=== PATIENT | male | born 1935 | race Caucasian/White ===

== ENCOUNTER 2017-02-14 05:44 | Day surgery (SDC) | payer MEDICARE, BC ==
[2017-02-13 11:44] VITALS: BMI 31.4
[2017-02-14] MEDS ORDERED: Ketorolac Tromethamine 30 MG/ML VIAL ONE (06:22)
[2017-02-14] MEDS ORDERED: CEFAZOLIN/Water 2 GM/20 ML SYRINGE ONE (06:22)
[2017-02-14] MEDS ORDERED: Fentanyl 100 MCG/2 ML VIAL ONE ×2 (06:38→10:33)
[2017-02-14 06:55] LABS: #Eosinphils 0.2 thou/uL (0.0-0.7); #Lymphocytes 1.9 thou/uL (1.20-3.40); #Monocytes 0.6 thou/uL (0.11-0.59); #Neutrophils 2.4 thou/uL (1.40-6.50); %Basophils 0.2 % (0.0-1.0); %Eosinophils 3.6 % (0.0-10.0); %Lymphocytes 37.4 % (21.0-51.0); %Monocytes 11.1 % (0.0-10.0); Hematocrit 42.2 % (42.0-52.0); Mean Platelet Volume 8.8 fL (7.4-10.4); Red Blood Cell (RBC) Count 4.28 mill/uL (4.70-6.10)
[2017-02-14 07:11] LABS: Anion Gap 9 mmol/L (10-20); BUN (Urea Nitrogen) 14 mg/dL (8.4-25.7); Calc. Creatinine Clearance 91 mL/min (70-130); Carbon Dioxide 28 mmol/L (23-31); Chloride 106 mmol/L (98-107); Estimated GFR-MDRD 81
[2017-02-14] MEDS ORDERED: Bupivacaine/Epinephrine 0.25% 30 ML VIAL ONE (07:17)
--- NOTE | 2017-02-14 07:42 | RAD ---
PA AND LATERAL CHEST: Indication: Dyspnea. Comparison: 11-30-15 FINDINGS: Low lung volumes accentuate the cardiac silhouette and pulmonary vasculature. No definite acute airsp bal consolidation or pleural effusions are noted. 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 IMPRESSION: No definite acute cardiopulmonary abnormalities. Low lung volumes. POS: [facility]
[2017-02-14] MEDS ORDERED: Morphine 4 MG/ML VIAL ONE (10:32)
[2017-02-14] MEDS ORDERED: Promethazine HCl 25 MG/ML VIAL IM/IV PRN (11:00)
[2017-02-14] MEDS ORDERED: Ondansetron HCl/PF 4 MG/2 ML Vial IVP PRN (11:00)
[2017-02-14] MEDS ORDERED: HYDROcodone/Acetaminophen 5/325 mg Tablet ONE (12:20)
[2017-02-14] MEDS ORDERED: Propofol 200 MG/20 ML VIAL ONE (16:18)
[2017-02-14] MEDS ORDERED: Glycopyrrolate 0.2 MG/ML 5 ML SYRINGE ONE (16:18)
[2017-02-14] MEDS ORDERED: Lidocaine 1% PF 5 ML VIAL ONE (16:18)
[2017-02-14] MEDS ORDERED: Ondansetron HCl/PF 4 MG/2 ML Vial ONE (16:18)
[2017-02-14] MEDS ORDERED: ePHEDrine/0.9% NaCl/PF SYRINGE 50 mg/10 ml ONE (16:18)
--- NOTE | 2017-02-14 19:59 | OP ---
DATE OF PROCEDURE: 02/14/2017 PREOPERATIVE DIAGNOSIS: Bilateral inguinal hernia. POSTOPERATIVE DIAGNOSIS: Bilateral inguinal hernia, indirect. OPERATION PERFORMED: Open repair of bilateral indirect inguinal hernias with extra-large mesh patch and plug. SURGEON: Lalit Pedro M.D. ANESTHESIA: General endotracheal. INDICATIONS: The patient is a 81-year-old white male. He presents with a large visible and palpable symptomatic bilateral inguinal hernias. He was taken to the operating room at this time for repair. DESCRIPTION OF OPERATION: Informed consent was obtained. The patient was taken to the operating socorro m where general endotracheal anesthesia obtained with the patient in supine position. The abdomen an d groins were prepped with ChloraPrep and draped in sterile fashion. Local anesthetic was infiltrate d using 0.25% Marcaine with epinephrine. Oblique right inguinal incision was created. Dissection wa s carried through skin and subcutaneous tissue down to the fascia, which was opened parallel to the f ibers so as to open the external ring. There was an obvious bulging mass coming through the external ring. The cord was dissected circumferentially and controlled with a [place] drain. There was a ve ry large cord. I with difficulty was able to dissect a large herniated structure off of the cord. I could not really define a hernia sac and this seemed to primarily be herniated preperitoneal fat con sistent with a huge cord lipoma. I was able to mobilize this from the lateral aspects of the interna l ring and mobilized off the cord structures. This appeared to come from several different pieces of herniated fatty tissue. I was able to reduce all the contents internally. The entire lateral aspec t of the lower abdominal/inguinal wall seemed very weak. An extra-large mesh plug was obtained and s ecured to the apex of the hernia contents were reduced into the space. This was fixed in place with several interrupted sutures of 2-0 Vicryl. I then placed 2 imbricating sutures to attempt to close t he space around and in continuity with the mesh. A mesh patch was then obtained, trimmed to appropri ate size, placed within the floor of the inguinal canal, and secured in place using several interrupt ed sutures of 2-0 Vicryl including additional lateral sutures to try to strengthen the lateral aspect of the wall. Additional local anesthetic was infiltrated. The fascia was closed with running sutur e of 3-0 Vicryl. The remainder of the wound was closed in layers with 3-0 and 4-0 Monocryl and [place] villeda was placed externally. Attention was turned to the left side. A mirror image incision and dissection was carried out. He h ad the exact same findings with a large lateral herniated fatty mass. The repair was affected in the same fashion using the same mesh in the same sutures. The wound was closed in the same fashion and Dermabond was placed externally. There were no complications. The patient tolerated the procedure w ell and was taken to recovery room in stable condition.
--- NOTE | 2017-03-04 13:20 | EKG ---
Test Reason : PREOP Blood Pressure : / mmHG Vent. Rate : 058 BPM Atrial Rate : 058 BPM P-R Int : 162 ms QRS Dur : 092 ms QT Int : 444 ms P-R-T Axes : 053 001 020 degrees QTc Int : 435 ms Sinus bradycardia Possible Inferior infarct , age undetermined Abnormal ECG No previous ECGs available Confirmed by SOLO GUTIERREZ MD ([id number]) on 03/04/2017 1:19:43 PM Referred By: MARISSA Confirmed By:SOLO GUTIERREZ MD
== END 2017-02-14 13:05 | disposition home or self-care (01) ==
LOC: SDC 05:44
PROVIDERS: ATTEND Specialist
PROC: 0YUA0JZ Supplement Bilateral Inguinal Region with Synthetic Substitute, Open Approach (ICD-10-PCS; principal; 2017-02-14)
DX: K40.00 Bilateral inguinal hernia, with obstruction, without gangrene, not specified as recurrent (principal); I10 Essential (primary) hypertension; E78.00 Pure hypercholesterolemia, unspecified; J45.909 Unspecified asthma, uncomplicated; G47.33 Obstructive sleep apnea (adult) (pediatric); G43.909 Migraine, unspecified, not intractable, without status migrainosus; K21.9 Gastro-esophageal reflux disease without esophagitis; M19.90 Unspecified osteoarthritis, unspecified site; Z98.42 Cataract extraction status, left eye; Z98.41 Cataract extraction status, right eye; Z96.1 Presence of intraocular lens; Z87.891 Personal history of nicotine dependence; Z92.3 Personal history of irradiation; Z85.46 Personal history of malignant neoplasm of prostate; Z87.442 Personal history of urinary calculi; Z79.899 Other long term (current) drug therapy; Z90.49 Acquired absence of other specified parts of digestive tract; Z98.890 Other specified postprocedural states; Z99.89 Dependence on other enabling machines and devices
CPT/HCPCS: 36415; 71020; 80048; 85025; 93005; 93010; 96374; C1781; J0131; J1885; J2001; J2270; J2405; J2704; J3010

== ENCOUNTER 2021-09-27 09:03 | Outpatient (CLI) | payer MEDICARE, BC | END 2021-09-27 09:04 | disposition home or self-care (01) | LOC: RAD 09:03 | PROVIDERS: ATTEND Internal Medicine Critical Care Medicine | DX: R06.00 Dyspnea, unspecified (principal); J98.4 Other disorders of lung | CPT/HCPCS: 71046 ==